=== PATIENT | male | born 1990 | race Caucasian/White ===

== ENCOUNTER 2018-02-24 22:11 | Emergency (ER) | payer MEDICAID ==
[2018-02-24 22:29] VITALS: BP 135/84; PULSE 81; RESP 18; TEMP 98.3; O2SAT 97
--- NOTE | 2018-02-24 23:15 | ED PDOC ---
HPI: Eye Injury/Pain Time Seen by Provider: 02/24/18 22:47 Chief Complaint (Nursing): Eye Problem Chief Complaint (Provider): Erythema of bilateral eyes, cough History Per: Patient History/Exam Limitations: no limitations Onset/Duration Of Symptoms: Days Current Symptoms Are (Timing): Still Present Additional Complaint(s): 27 yo male with history of pneumonia presents with bilateral eye redness and drainage x 2 days and cough x 4 days. Pt states he was having a headache but no longer. Pt taking OTC medications for symptoms. Past Medical History Reviewed: Historical Data, Nursing Documentation, Vital Signs Vital Signs: Last Vital Signs Temp 98.3 F 02/24/18 22:24 Pulse 81 02/24/18 22:24 Resp 18 02/24/18 22:24 BP 135/84 02/24/18 22:24 Pulse Ox 97 02/24/18 22:24 - Medical History PMH: No Chronic Diseases Denies: Chronic Kidney Disease - Surgical History Surgical History: Tonsillectomy - Family History Family History: States: Unknown Family Hx - Living Arrangements Living Arrangements: With Family - Social History Current smoker - smoking cessation education provided: No - Home Medications Home Medications: Ambulatory Orders Medication Instructions Recorded Promethazine [Phenergan Syrup] 6.25 mg PO Q6 PRN #1 cup 06/09/16 levoFLOXacin [Levaquin] 500 mg PO DAILY #7 tab 06/09/16 Azithromycin 250 mg PO DAILY #6 tab 02/24/18 Polymyxin/Trimethoprim Sulfate 1 drop XX Q6H 10 Days bottle 02/24/18 [Polytrim Ophth Soln] - Allergies Allergies/Adverse Reactions: Allergies Allergy/AdvReac Type Severity Reaction Status Date / Time No Known Allergies Allergy Verified 02/24/18 22:23 Review of Systems ROS Statement: Except As Marked, All Systems Reviewed And Found Negative Constitutional: Negative for: Fever, Chills Respiratory: Positive for: Cough. Negative for: Shortness of Breath Physical Exam - Reviewed Nursing Documentation Reviewed: Yes Vital Signs Reviewed: Yes - Physical Exam Appears: Positive for: Well, Non-toxic, No Acute Distress Head Exam: Positive for: ATRAUMATIC, NORMAL INSPECTION, NORMOCEPHALIC Skin: Positive for: Normal Color, Warm, DRY Eye Exam: Positive for: Conjunctival injection. Negative for: Normal appearance , Scleral icterus ENT: Positive for: Normal ENT Inspection Neck: Positive for: Normal, Painless ROM Cardiovascular/Chest: Positive for: Regular Rate, Rhythm Respiratory: Positive for: CNT, Normal Breath Sounds Gastrointestinal/Abdominal: Positive for: Normal Exam, Soft Back: Positive for: Normal Inspection Extremity: Positive for: Normal ROM Neurologic/Psych: Positive for: Alert, Oriented - ECG O2 Sat by Pulse Oximetry: 97 Pulse Ox Interpretation: Normal Medical Decision Making Medical Decision Making: CXR Disposition - Clinical Impression Clinical Impression: Bacterial conjunctivitis, Cough - Patient ED Disposition Is Patient to be Admitted: No Counseled Patient/Family Regarding: Diagnosis, Need For Followup - Disposition Disposition: Routine/Home Disposition Time: 23:16 Condition: GOOD Prescriptions: Azithromycin 250 mg PO DAILY #6 tab Polymyxin/Trimethoprim Sulfate [Polytrim Ophth Soln] 1 drop XX Q6H 10 Days bottle Instructions: Cough, Runny Nose, and the Common Cold (DC), Conjunctivitis ( Pinkeye) Forms: [facility] (Martiniquais)
--- NOTE | 2018-02-25 09:00 | RAD ---
HISTORY: cough COMPARISON: Chest radiograph dated 06/09/2016. TECHNIQUE: Chest PA and lateral FINDINGS: LUNGS: No active pulmonary disease. PLEURA: No significant pleural effusion identified. No pneumothorax apparent. CARDIOVASCULAR: Normal. OSSEOUS STRUCTURES: Unchanged. VISUALIZED UPPER ABDOMEN: Normal. OTHER FINDINGS: None. IMPRESSION: No active disease.
== END 2018-02-24 23:41 | disposition home or self-care (01) ==
LOC: H.ER 22:11
DX: H10.89 Other conjunctivitis (principal); R05 Cough